=== PATIENT | female | born 1975 ===

== ENCOUNTER 2018-06-04 09:59 | Emergency (ER) | payer OTHER ==
[~2018-06-04] VITALS: Ht 149.9 cm; Wt 72.6 kg
[2018-06-04] MEDS ORDERED: NORFLEX100MG PO (13:28)
[2018-06-04] MEDS ORDERED: KETO10TA2 PO (13:28)
== END 2018-06-04 13:27 | disposition home or self-care (01) ==
LOC: ER 09:59
DX: R07.89 Other chest pain (principal)